=== PATIENT | male | born 1970 | race Caucasian/White ===

== ENCOUNTER 2024-05-28 07:49 | Emergency (ER) | payer BC ==
[~2024-05-28] VITALS: Ht 198.1 cm; Wt 68.0 kg
[2024-05-28 07:53] VITALS: BP 182/106; PULSE 64; RESP 18; O2SAT 96
[2024-05-28 11:08] LABS: BASOPHILS % 0.6 % (0.0-2.0); EOSINOPHILS % 0.8 % (0.0-5.0); HEMATOCRIT. 53.1 % (42.0-52.0); HEMOGLOBIN. 17.9 g/dL (14.0-18.0); LYMPHOCYTES % 21.3 % (20.0-50.0); MEAN CORPUSCULAR HEMOGLOBIN 29.6 pg (28.0-32.0); MEAN CORPUSCULAR HGB CONC 33.7 g/dL (31.0-37.0); MEAN CORPUSCULAR VOLUME 87.7 fL (80.0-94.0); MEAN PLATELET VOLUME 10.1 fl (7.4-10.4); MONOCYTES % 3.9 % (2.0-8.0); NEUTROPHILS % 73.4 % (40.0-76.0); PLATELET 232 x1000/uL (130-400); RED BLOOD CELL COUNT 6.05 mill/uL (4.7-6.1); RED CELL DISTRIBUTION WIDTH 14.4 % (11.6-14.6); WHITE BLOOD COUNT 9.6 x1000/uL (4.5-11.0)
[2024-05-28 11:11] VITALS: TEMP 97.6
[2024-05-28] MEDS: ACETAMINOPHEN 325MG TABLET PO ONE (11:11)
[2024-05-28] MEDS: ONDANSETRON 4MG ODT PO ONE (11:11)
[2024-05-28 11:17] LABS: CHLORIDE 102 mEq/L (98-107); SODIUM 138 mEq/L (136-145)
[2024-05-28 11:18] LABS: CALCIUM 10.2 mg/dL (8.7-10.4); CARBON DIOXIDE 30 mEq/L (21-32)
[2024-05-28 11:23] LABS: CREATININE 0.8 mg/dL (0.6-1.3); GLUCOSE 121 mg/dL (70-105); UREA NITROGEN BLOOD 10 mg/dL (9-23)
[2024-05-28 11:25] LABS: ALANINE AMINOTRANSFERASE 18 IU/L (10-49); ASPARTATE AMINOTRANSFERASE 22 IU/L (<34); BILIRUBIN DIRECT 0.2 mg/dL (<=3.0); BILIRUBIN TOTAL 0.8 mg/dL (0.1-1.0); PROTEIN TOTAL 8.2 g/dL (6.0-8.3)
[2024-05-28] MEDS: METOCLOPRAMIDE HCL 10MG TABLET PO ONE (11:50)
[2024-05-28] MEDS: ONDANSETRON HCL 4MG/2ML INJ IV ONE (13:08)
[2024-05-28] MEDS: LACTATED RINGERS 1,000 ML IV SCH (13:09)
[2024-05-28] MEDS ORDERED: ONDA-239 PO (13:53)
== END 2024-05-28 14:10 | disposition home or self-care (01) ==
LOC: ER 08:40
DX: B34.9 Viral infection, unspecified (principal); I10 Essential (primary) hypertension
CPT/HCPCS: 99284; 96374; 71045; 96361; 80076; 80048; 83690; 85025; 36415; J8597; Q0162; J2405